=== PATIENT | male | born 1955 | race Caucasian/White ===

== ENCOUNTER → 2023-03-26 13:04 | Outpatient (REF) | payer MEDICARE, SELFPAY | LOC: RAD 13:04 | PROVIDERS: ATTENDING PHYSICIAN Physician Assistant Medical | DX: D13.5 Benign neoplasm of extrahepatic bile ducts (principal) | CPT/HCPCS: 76700 ==

== ENCOUNTER → 2023-04-23 15:42 | Outpatient (REF) | payer MEDICARE, SELFPAY | LOC: RAD 15:42 | PROVIDERS: ATTENDING PHYSICIAN Physician Assistant Medical | DX: R91.8 Other nonspecific abnormal finding of lung field (principal) | CPT/HCPCS: 71260; Q9967 ==